=== PATIENT | male | born 1955 | race Caucasian/White ===

== ENCOUNTER → 2016-07-14 | Outpatient (CLI) | payer OTHER | LOC: RAD 13:06 | DX: Z00.00 Encounter for general adult medical examination without abnormal findings (principal) ==

== ENCOUNTER 2018-08-23 09:59 | Emergency (ER) | payer OTHER ==
[~2018-08-23] VITALS: Ht 185.4 cm; Wt 98.4 kg
[2018-08-23] MEDS ORDERED: IBUPROFEN 600600 M1 PO (10:37)
[2018-08-23 10:52] VITALS: BP 146/88
== END 2018-08-23 10:53 | disposition home or self-care (01) ==
LOC: ER 09:59
DX: S93.491A Sprain of other ligament of right ankle, initial encounter (principal); J45.909 Unspecified asthma, uncomplicated; F17.210 Nicotine dependence, cigarettes, uncomplicated; X50.3XXA Overexertion from repetitive movements, initial encounter; Y93.89 Activity, other specified; Y92.89 Other specified places as the place of occurrence of the external cause; Y99.8 Other external cause status